=== PATIENT | female | born 1955 | race Caucasian/White ===

== ENCOUNTER → 2019-01-23 | Outpatient (CLI) | payer MEDICARE, BC ==
[~2019-01-23] MED LIST: BUPIVACAINE MPF 0.25% 10 ML VIAL. ONE; DEXAMETHASONE SOD PHOS 10 MG/ML VIAL ONE; IOHEXOL 300 MG/ML 50 ML VIAL. ONE; LIDOCAINE 1% PF 30 ML VIAL. ONE
== END | disposition home or self-care (01) ==
LOC: SURG 10:02
PROVIDERS: ATTEND Anesthesiology Pain Medicine
DX: M54.16 Radiculopathy, lumbar region (principal); M46.1 Sacroiliitis, not elsewhere classified; M16.12 Unilateral primary osteoarthritis, left hip; F17.210 Nicotine dependence, cigarettes, uncomplicated; Z72.89 Other problems related to lifestyle; Z79.899 Other long term (current) drug therapy; Z90.710 Acquired absence of both cervix and uterus; Z98.890 Other specified postprocedural states
CPT/HCPCS: 64483; J1100; J2001; J3490; Q9967; 64484

== ENCOUNTER → 2019-10-04 | Outpatient (CLI) | payer MEDICARE, BC ==
[~2019-10-04] MED LIST changes: +ALPR0.5T6 PO; -BUPIVACAINE MPF 0.25% 10 ML VIAL. ONE; +CYCL5TAB PO; -DEXAMETHASONE SOD PHOS 10 MG/ML VIAL ONE; +FLUO40CA2 PO; +HYDR-2759 PO; -IOHEXOL 300 MG/ML 50 ML VIAL. ONE; -LIDOCAINE 1% PF 30 ML VIAL. ONE; +LORA-254 PO; +MELO7.5T29 PO; +MORP30TA PO; +OXYC5TAB4 PO
[2019-10-04 13:28] VITALS: BP 125/74
== END | disposition home or self-care (01) ==
LOC: SURG 13:19
PROVIDERS: ATTEND Anesthesiology Pain Medicine
DX: M54.16 Radiculopathy, lumbar region (principal); M62.830 Muscle spasm of back; M47.816 Spondylosis without myelopathy or radiculopathy, lumbar region; G89.4 Chronic pain syndrome; M19.90 Unspecified osteoarthritis, unspecified site; F11.20 Opioid dependence, uncomplicated; Z90.710 Acquired absence of both cervix and uterus; Z90.89 Acquired absence of other organs; Z79.899 Other long term (current) drug therapy
CPT/HCPCS: 99214

== ENCOUNTER 2020-05-18 12:40 | Emergency (ER) | payer MEDICARE, BC ==
[~2020-05-18] VITALS: Ht 170.2 cm; Wt 61.3 kg
[2020-05-18] MEDS ORDERED: DEXAMETHASONE 4 MG TABLET ONE (13:07)
[2020-05-18] MEDS ORDERED: ORPHENADRINE CITRATE 60 MG/2 ML VIAL. ONE (13:08)
[2020-05-18] MEDS ORDERED: LIDO700A21 TP (13:08)
[2020-05-18] MEDS ORDERED: ORPH-16 PO (13:08)
[2020-05-18] MEDS ORDERED: PRED20TA PO (13:08)
[2020-05-18] MEDS ORDERED: LIDOCAINE (700MG/PATCH) PATCH. ONE (13:08)
--- NOTE | 2020-05-18 13:08 | PHYS DOC ---
Past History Past Medical History: Depression, Sciatica Additional Past Medical Histor: Chronic back pain Past Surgical History: Other Additional Past Surgical Histo: back procedure Smoking: Cigarettes Alcohol Use: Occasionally Drug Use: None General Adult EDM: Chief Complaint: BACK PAIN OR INJURY HPI: HPI: 64-year-old female presents with report of low back pain with radiation down right leg. Patient reports history of chronic back pain and sciatica. Patient reports she bent to lift some furniture last Monday and suddenly heard a "pop ". Reports pain has been increased. Patient reports taking a dose of her prescribed OxyContin approximately 1 hour ago. Reports pain has not been well controlled. Denies loss of bowel or bladder. Denies rash. Denies fever or c hills. Denies dysuria or hematuria. Review of Systems: Review of Systems: Constitutional: Denies fever or chills Eyes: Denies redness or eye pain HENT: Denies nasal congestion or sore throat Respiratory: Denies cough or shortness of breath Cardiovascular: Denies chest pain or palpitations GI: Denies abdominal pain, nausea, or vomiting : Denies dysuria or hematuria Musculoskeletal: Reports low back pain; denies joint pain Integument: Denies rash or skin lesions Neurologic: Denies headache, focal weakness or sensory changes; denies loss of bowel or bladder Complete systems were reviewed and found to be within normal limits, except as documented in this note. Allergies: Allergies: Allergies Coded Allergies Type Severity Reaction Last Updated Verified No Known Drug Allergies 05/18/20 No Physical Exam: PE: Constitutional: Well developed, well nourished HENT: Normocephalic, atraumatic Eyes: Conjunctiva normal, no discharge Neck: Normal range of motion, no tenderness, supple Lungs & Thorax: No respiratory distress, equal chest rise and fall Abdomen: Soft, no tenderness, no guarding/rebound tenderness/distention Skin: Warm, dry, no erythema, no rash Back: No midline tenderness, lumbar paraspinal tenderness noted, no CVA tenderness Extremities: No tenderness, ROM intact, no edema Neurologic: Alert and oriented X 3, no focal deficits noted Psychologic: Affect normal, judgment normal Current Patient Data: Vital Signs: Vital Signs Date Time Temp Pulse Resp B/P (MAP) Pulse Ox O2 Delivery O2 Flow Rate FiO2 05/18/20 12:40 96.3 75 18 100/48 (65) 93 Room Air EKG: EKG: [] Radiology/Procedures: Radiology/Procedures: [] Course & Med Decision Making: Course & Med Decision Making Patient presents with HPI and physical exam consistent for acute exacerbation of chronic low back pain with chronic sciatica to right side. Afebrile. Denies loss of bowel or bladder. Symptomatic treatment provided. Patient stable for discharge with outpatient follow-up with PCP/pain management. Pain management referral provided. Discussed findings and plan with patient, who acknowledges understanding and agreement. Jimena Disclaimer: Jimena Disclaimer: This electronic medical record was generated, in whole or in part, using a voice recognition dictation system. Departure Departure: Impression: Primary Impression: Exacerbation of chronic back pain Additional Impression: Sciatica Qualified Codes: M54.31 - Sciatica, right side Disposition: HOME/RESIDENCE PRIOR TO ADM Condition: STABLE Referrals: MICAH MORA APRN (PCP) Patient Instructions: Chronic Back Pain, Sciatica, [id number] Additional Instructions: Please call and follow up with your party supply specialist. Scripts Lidocaine (Lidocaine PATCH ) 1 Each Adh..patch 1 EACH TP DAILY for FOR LOCAL PAIN, #10 PATCH REMOVE AFTER 12 HOURS Prov: VANESA GUNN DO 05/18/20 Prednisone (PREDNISONE) 20 Mg Tablet 1 TAB PO DAILY for Back pain, #8 TAB Start this prescription tomorrow, Monday05/19/20 Prov: VANESA GUNN DO 05/18/20 Orphenadrine Citrate (ORPHENADRINE CITRATE) 100 Mg Tablet.er 1 TAB PO BID PRN for MUSCLE PAIN, #14 TAB 0 Refills Prov: VANESA GUNN DO 05/18/20 Justification of Admission: Justification of Admission: Justification of Admission Dx: N/A VANESA GUNN DO May 18, 2020 13:08
[2020-05-18] MEDS ORDERED: ORPHENADRINE CITRATE 60 MG/2 ML VIAL. IM ONE (13:15)
[2020-05-18] MEDS ORDERED: DEXAMETHASONE 4 MG TABLET PO ONE (13:15)
[2020-05-18] MEDS ORDERED: LIDOCAINE (700MG/PATCH) PATCH. TD ONE (13:15)
[2020-05-18 13:20] VITALS: BP 119/50
== END 2020-05-18 13:47 | disposition home or self-care (01) ==
LOC: ER 12:40
DX: G89.29 Other chronic pain (principal); M54.41 Lumbago with sciatica, right side
CPT/HCPCS: 96372; 99283; J2360; J8540

== ENCOUNTER → 2020-07-15 | Outpatient (CLI) | payer MEDICARE, BC ==
[~2020-07-15] MED LIST changes: +LIDO700A21 TP; +ORPH-16 PO; +PRED20TA PO
--- NOTE | 2020-07-15 16:15 | RAD ---
INDICATION: Osteoporosis screening. Postmenopausal screening COMPARISON: None. TECHNIQUE: Bone densitometry was performed through the forearm and proximal femur. FINDINGS: Forearm: BMD: 0.28 T-Score: -2.7 Proximal Femur: BMD: 0.5 T-Score: -3.5 IMPRESSION: 1. Forearm falls within the osteoporotic range. 2. Proximal femur falls within the osteoporotic range. Electronically signed by: Manjinder Worthy MD (07/15/2020 4:11 PM) [id number]
--- NOTE | 2020-07-15 16:16 | RAD ---
INDICATION: Osteoporosis screening. Postmenopausal screening COMPARISON: None. TECHNIQUE: Bone densitometry was performed through the forearm and proximal femur. FINDINGS: Forearm: BMD: 0.28 T-Score: -2.7 Proximal Femur: BMD: 0.5 T-Score: -3.5 IMPRESSION: 1. Forearm falls within the osteoporotic range. 2. Proximal femur falls within the osteoporotic range. Electronically signed by: Manjinder Worthy MD (07/15/2020 4:13 PM) [id number]
== END | disposition home or self-care (01) ==
LOC: DXRAD 15:03
PROVIDERS: ATTEND Family Medicine
DX: M81.0 Age-related osteoporosis without current pathological fracture (principal)
CPT/HCPCS: 77080; 77081

== ENCOUNTER → 2021-10-12 | Outpatient (CLI) | payer MEDICARE, BC ==
--- NOTE | 2021-10-13 13:48 | RAD ---
INDICATION: 66 years of age asymptomatic female patient presents for screening mammography. TECHNIQUE: Full field craniocaudal and mediolateral oblique images of both breasts were obtained usi ng digital technique with tomosynthesis and also analyzed with computer-aided detection software. COMPARISON: This is a baseline examination. BREAST COMPOSITION: Category A: The breasts are predominantly fatty. FINDINGS: Benign calcifications are present. Focal asymmetry in the superior, slightly lateral right breast. No suspicious right breast Calcification or architectural distortion. No suspicious masses, microcalcifications or architectural distortion is present to suggest malignanc y in the left breast. The visualized axillae are unremarkable. IMPRESSION: Right breast focal asymmetry, findings for which additional imaging is advised. RECOMMENDATION: The patient will be contacted to return for additional imaging and a supplemental rep ort will follow. Spot mammographic imaging is recommended of the right breast as well as ultrasound. BIRADS 0: INCOMPLETE - NEED ADDITIONAL IMAGING EVALUATION AND/OR PRIOR MAMMOGRAMS FOR COMPARISON. This study was interpreted with the benefit of Computerized Aided Detection (CAD). Patient information is entered into the reminder system with a target due date for the next screening mammogram. Mammography is the most sensitive method for finding small breast cancers, but it does not detect the m all and is not a substitute for careful clinical examination. A negative mammogram does not negate a clinically suspicious finding and should not result in delay in biopsying a clinically suspicious a bnormality. "Our facility is accredited by the [employer] Mammography Program." Electronically signed by: Joe Monge MD (10/13/2021 1:46 PM) [id number]
== END ==
LOC: MAMMO 14:50
PROVIDERS: ATTEND Family Medicine
DX: Z12.31 Encounter for screening mammogram for malignant neoplasm of breast (principal)
CPT/HCPCS: 77063; 77067

== ENCOUNTER → 2021-11-02 | Outpatient (CLI) | payer MEDICARE, BC ==
--- NOTE | 2021-11-02 14:41 | RAD ---
PROCEDURE: US BREAST LTD RT, MG DIAGNOSTICUNILAT MAMMO HISTORY: The patient is 66 years old and is seen for Reason: RT BREAST CALLBACK / Spl. Instructions: / History: . COMPARISON: October 12, 2021 TECHNIQUE: Right breast ML and spot compression CC and MLO views. Right breast ultrasound was also pe rformed. DENSITY: There are scattered fibroglandular densities. FINDINGS: Right mammogram: Persistent asymmetry within the right upper breast anterior to 0.8 cm from the nippl e. Right ultrasound: Small complicated cystic lesion within the right breast 12:00 position 2 cm from th e nipple measures 0.3 x 0.3 x 0.27 m. Several adjacent cystic changes. Mild ductal ectasia. IMPRESSION: Small complicated cystic lesion corresponding with mammographic finding. Recommend return to annual s creening. Recommend annual screening mammograms per [employer] guidelines. She will be due in one year. BI-RADS category 2 Benign Patient entered into a reminder system for annual screening mammogram. Electronically signed by: Juan Manuel Fitzpatrick DO (11/02/2021 2:39 PM) [id number]
== END ==
LOC: MAMMO 13:49
PROVIDERS: ATTEND Family Medicine
DX: N64.89 Other specified disorders of breast (principal)
CPT/HCPCS: 76642; 77065

== ENCOUNTER → 2021-12-08 | Day surgery (SDC) | payer MEDICARE, BC ==
[~2021-12-08] MED LIST changes: +BUPIVACAINE MPF 0.25% 10 ML VIAL. ONE; +DEXAMETHASONE SOD PHOS 10 MG/ML VIAL. ONE; +IOHEXOL 300 MG/ML 50 ML VIAL. ONE; +LIDOCAINE 1% PF 30 ML VIAL. ONE
== END | disposition home or self-care (01) ==
LOC: SURG 15:17
PROVIDERS: ATTEND Anesthesiology
DX: M54.16 Radiculopathy, lumbar region (principal); G89.29 Other chronic pain; M48.061 Spinal stenosis, lumbar region without neurogenic claudication; M19.90 Unspecified osteoarthritis, unspecified site; Z98.890 Other specified postprocedural states; Z79.899 Other long term (current) drug therapy; Z90.710 Acquired absence of both cervix and uterus
CPT/HCPCS: 64483; 64484; A4209; A4657; A4930; J1100; J3490; Q9967

== ENCOUNTER → 2022-02-02 | Day surgery (SDC) | payer MEDICARE, BC ==
[2022-02-02 15:45] VITALS: BP 128/72
== END | disposition home or self-care (01) ==
LOC: SURG 14:51
PROVIDERS: ATTEND Anesthesiology
DX: M54.16 Radiculopathy, lumbar region (principal); M19.90 Unspecified osteoarthritis, unspecified site; M79.10 Myalgia, unspecified site; F17.210 Nicotine dependence, cigarettes, uncomplicated; M81.0 Age-related osteoporosis without current pathological fracture; Z90.710 Acquired absence of both cervix and uterus; Z98.890 Other specified postprocedural states; Z79.899 Other long term (current) drug therapy; Z71.82 Exercise counseling; Z79.891 Long term (current) use of opiate analgesic; Z90.89 Acquired absence of other organs
CPT/HCPCS: 64483; 64484; A4209; A4930; J1100; J3490; Q9967

== ENCOUNTER → 2022-02-24 | Day surgery (SDC) | payer MEDICARE, BC ==
[~2022-02-24] MED LIST changes: -BUPIVACAINE MPF 0.25% 10 ML VIAL. ONE; -DEXAMETHASONE SOD PHOS 10 MG/ML VIAL. ONE; -IOHEXOL 300 MG/ML 50 ML VIAL. ONE; -LIDOCAINE 1% PF 30 ML VIAL. ONE
[2022-02-24 11:38] VITALS: BP 114/56
== END | disposition home or self-care (01) ==
LOC: SURG 11:25
PROVIDERS: ATTEND Anesthesiology
DX: M54.16 Radiculopathy, lumbar region (principal); M79.10 Myalgia, unspecified site; M19.90 Unspecified osteoarthritis, unspecified site; F17.210 Nicotine dependence, cigarettes, uncomplicated; Z79.891 Long term (current) use of opiate analgesic; Z71.82 Exercise counseling; Z98.890 Other specified postprocedural states; Z79.899 Other long term (current) drug therapy; Z90.89 Acquired absence of other organs; Z90.710 Acquired absence of both cervix and uterus
CPT/HCPCS: 99214; G0463